=== PATIENT | female | born 1945 | race Caucasian/White ===

== ENCOUNTER 2024-01-26 10:20 | Inpatient (IN) | payer OTHER ==
[~2024-01-26] VITALS: Ht 160 cm; Wt 56.7 kg
[2024-01-26] MEDS ORDERED: CEFAZOLIN SOD 2 GM in D5W 50 ML IV ONE (10:45)
[2024-01-26] MEDS ORDERED: MIDAZOLAM HCL 2 MG/2 ML VIAL (VERSED) ONE (12:34)
[2024-01-26] MEDS ORDERED: fentaNYL CITRATE/PF 100 MCG/2 ML AMP ONE (12:34)
[2024-01-26] MEDS ORDERED: ACETAMINOPHEN I.V. 1000 MG 100 ML IV ONE (12:35)
[2024-01-26] MEDS ORDERED: fentaNYL CITRATE/PF 100 MCG/2 ML AMP IVP PRN ×2 (13:00)
[2024-01-26] MEDS ORDERED: ONDANSETRON HCL 4 MG/2 ML VIAL IVP PRN (13:00)
[2024-01-26] MEDS ORDERED: LR 1,000 ML IV ONE (13:00)
[2024-01-26] MEDS ORDERED: NALOXONE HCL 0.4 MG/ML AMP (NARCAN) IVP PRN (13:00)
[2024-01-26] MEDS ORDERED: NS IRRIG SOLN 1000 ML IR ONE (14:17)
[2024-01-26] MEDS ORDERED: BUPIVACAINE /PF 0.25% 30 ML VIAL INJ ONE (14:17)
[2024-01-26] MEDS ORDERED: PROPOFOL 200MG/ 20ML VIAL (DIPRIVAN) IV ONE (14:17)
[2024-01-26] MEDS ORDERED: ROCURONIUM BROMIDE 10 MG/ML (ZEMURON) ONE (14:17)
[2024-01-26] MEDS ORDERED: SEVOFLURANE 15 MIN GAS INH ONE (14:17)
[2024-01-26] MEDS ORDERED: NS 1000 ML IV.SOLN IV ONE (14:17)
[2024-01-26] MEDS ORDERED: ONDANSETRON HCL 4 MG/2 ML VIAL ONE ×2 (14:17→16:12)
[2024-01-26] MEDS ORDERED: SUGAMMADEX SODIUM 200 MG/2 ML VIAL IV ONE (14:17)
[2024-01-26] MEDS ORDERED: LABETALOL HCL 20 MG/4 ML CARTRIDGE IVP ONE (14:17)
[2024-01-26] MEDS ORDERED: WATER FOR IRRIGATION,STERILE 1,000 ML IRRIG.SOLN IR ONE (14:17)
[2024-01-26] MEDS ORDERED: hydrALAZINE HCL 20 MG/ML VIAL ONE (14:42)
[2024-01-26] MEDS: hydrALAZINE HCL 20 MG/ML VIAL IV PRN (14:42)
[2024-01-26] MEDS: HYDROmorphone 1 MG/ML INJ. CARTRIDGE IVP PRN (14:58)
[2024-01-26] MEDS ORDERED: HYDROmorphone 1 MG/ML INJ. CARTRIDGE ONE (14:59)
[2024-01-26 15:11] VITALS: O2SAT 98
[2024-01-26 19:10] VITALS: BP_SYST 163; PULSE 88; RESP 17
== END 2024-01-26 17:20 | disposition home or self-care (01) | DRG 419 ==
LOC: SMU 10:20 → EDSTATUS 12:00
PROVIDERS: ADMIT Colon & Rectal Surgery; ATTEND Colon & Rectal Surgery
PROC: BF131ZZ Fluoroscopy of Gallbladder and Bile Ducts using Low Osmolar Contrast (ICD-10-PCS; 2024-01-26)
PROC: 0DNU4ZZ Release Omentum, Percutaneous Endoscopic Approach (ICD-10-PCS; 2024-01-26)
PROC: 0FT44ZZ Resection of Gallbladder, Percutaneous Endoscopic Approach (ICD-10-PCS; principal; 2024-01-26 12:34)
DX: K80.10 Calculus of gallbladder with chronic cholecystitis without obstruction (principal); Z79.899 Other long term (current) drug therapy; Z88.8 Allergy status to other drugs, medicaments and biological substances; K66.0 Peritoneal adhesions (postprocedural) (postinfection)
CPT/HCPCS: 74300; 87081; 88304; C1727; J0131; J0360; J0690; J1170; J2405; J2704; J3010; J3465; J3490; J7030; J7060; Q9967